=== PATIENT | female | born 1990 | race Two or more races ===

== ENCOUNTER 2023-01-18 10:06 | Emergency (ER) | payer OTHER ==
[~2023-01-18] VITALS: Ht 162.6 cm; Wt 108.9 kg
[2023-01-18] MEDS ORDERED: ZESTRIL5 MG PO (10:35)
[2023-01-18] MEDS ORDERED: MEDROLPACK PO (14:04)
[2023-01-18] MEDS ORDERED: BENADRYL25 MG PO (14:04)
[2023-01-18] MEDS ORDERED: PEPCID AC20 MG PO (14:04)
== END 2023-01-18 16:04 | disposition home or self-care (01) ==
LOC: ER 10:06
DX: T78.40XA Allergy, unspecified, initial encounter (principal); Z88.6 Allergy status to analgesic agent